=== PATIENT | male | born 1940 ===

== ENCOUNTER 2018-07-16 10:22 | Emergency (ER) | payer MEDICARE ==
[2018-07-16 10:22] VITALS: BMI 21.5
[2018-07-16 10:30] VITALS: PULSE 84; RESP 18; O2SAT 98
[2018-07-16] MEDS ORDERED: Albuterol 0.083% Inhal Sol (2.5 mg/3 mL) UD INH STA ×2 (11:15→12:14)
[2018-07-16] MEDS ORDERED: Albuterol 0.083% Inhal Sol (2.5 mg/3 mL) UD ONE ×2 (11:20→12:34)
[2018-07-16 11:32] LABS: BASO # 0.1 K/uL (0.0-0.2); BASO % 1.2 % (0.0-2.0); EOS # 0.2 K/uL (0.0-0.7); EOS % 2.6 % (0.0-4.0); HEMOGLOBIN 14.9 g/dL (12.0-18.0); LYMPH # 1.4 K/uL (1.0-4.3); LYMPH % 23.9 % (20.0-40.0); MEAN CELL VOLUME 99.2 fL (80.0-94.0); MEAN CORPUSCULAR HEMOGLOBIN 35.2 pg (27.0-31.0); MEAN CORPUSCULAR HGB CONC 35.4 g/dL (33.0-37.0); MEAN PLATELET VOLUME 8.5 fL (7.2-11.7); MONO # 0.5 K/uL (0.0-0.8); MONO % 8.5 % (0.0-10.0); NEUT # 3.8 K/uL (1.8-7.0); NEUT % 63.8 % (50.0-75.0); NRBC % 0.1 % (0.0-2.0); RBC 4.24 Mil/uL (4.40-5.90); RED CELL DISTRIBUTION WIDTH 12.3 % (11.5-14.5); WHITE BLOOD COUNT 5.9 K/uL (4.8-10.8)
[2018-07-16 11:43] LABS: ALB/GLOB RATIO 1.1 (1.0-2.1); ALBUMIN 4.1 g/dL (3.5-5.0); ALT/SGPT 43 U/L (21-72); AST/SGOT 32 U/L (17-59); BLOOD UREA NITROGEN 14 mg/dL (9-20); CALCIUM 8.1 mg/dl (8.6-10.4); GFR NON-AFRICAN AMERICAN > 60
[2018-07-16 11:55] LABS: B-TYPE NATRIURETIC PEPTIDE 337 pg/mL (0-900)
[2018-07-16 11:56] LABS: INR 1.7; PROTHROMBIN TIME 18.4 SECONDS (9.7-12.2)
--- NOTE | 2018-07-16 12:01 | RAD ---
Date of service: 07/16/2018 HISTORY: Shortness of breath COMPARISON: No prior. TECHNIQUE: Chest PA and lateral FINDINGS: LINES AND TUBES: None. LUNG AND PLEURA: The lungs are hyperinflated and there is peribronchial thickening with chronic changes in both lungs. No pleural effusion or pneumothorax. HEART AND MEDIASTINUM: There is mild cardiomegaly. There are aortic atherosclerotic calcifications present. The hilar and mediastinal contours are within normal limits. SKELETAL STRUCTURES: The bony structures are within normal limits for the patient's age. VISUALIZED UPPER ABDOMEN: Normal. OTHER FINDINGS: None. IMPRESSION: No active pulmonary disease. COPD.
--- NOTE | 2018-07-16 12:12 | C.PDOC ---
History Of Present Illness 78 year old male with a history of HTN (controlled by medications) presents to the emergency department with complaints of one week history of cough, nasal congestion, runny nose, and sore throat. Patient states that as of two nights ago he has been unable to sleep due to his cough. Patient denies nausea and vomiting. Time Seen by Provider: 07/16/18 10:57 Chief Complaint (Nursing): Cough, Cold, Congestion History Per: Patient History/Exam Limitations: no limitations Onset/Duration Of Symptoms: Other (one week) Current Symptoms Are (Timing): Still Present Location Of Pain: Throat Associated Symptoms: Sore Throat, Cough, Sinus Drainage, Nasal Congestion. denies: Nausea, Vomiting Past Medical History Reviewed: Historical Data, Nursing Documentation, Vital Signs Vital Signs: Last Vital Signs Temp 98 F 07/16/18 10:27 Pulse 84 07/16/18 10:27 Resp 18 07/16/18 10:27 BP 130/75 07/16/18 10:27 Pulse Ox 98 07/16/18 10:27 - Medical History PMH: Atrial Fibrillation, Benign Prostatic Hyperplasia, HTN Surgical History: Cholecystectomy - [facility] NEBULIZER THERAPY (01/28/15) Family History: States: No Known Family Hx - Social History Hx Alcohol Use: No Hx Substance Use: No Review Of Systems Except As Marked, All Systems Reviewed And Found Negative. ENT: Positive for: Nose Discharge, Nose Congestion, Throat Pain Respiratory: Positive for: Cough Physical Exam - Physical Exam Appears: Non-toxic, No Acute Distress Skin: Normal Color, Warm, Dry Head: Atraumatic, Normacephalic Eye(s): bilateral: Normal Inspection, PERRL, EOMI Ear(s): Bilateral: Normal Nose: Normal Oral Mucosa: Moist Throat: Normal, No Erythema Neck: Normal, Supple Chest: Symmetrical, No Tenderness Cardiovascular: Rhythm Regular, No Murmur Respiratory: Normal Breath Sounds, No Rales, No Rhonchi, No Wheezing Neurological/Psych: Oriented x3, Normal Speech, Normal Cognition ED Course And Treatment - Laboratory Results Result Diagrams: 07/16/18 11:29 07/16/18 11:29 Lab Results: PT 18.4 SECONDS (9.7-12.2) H 07/16/18 11:38 INR 1.7 07/16/18 11:38 APTT 42 SECONDS (21-34) H 07/16/18 11:38 Troponin I < 0.0120 ng/mL (0.00-0.120) 07/16/18 11:29 NT-Pro-B Natriuret Pep 337 pg/mL (0-900) 07/16/18 11:29 Total Bilirubin 0.9 mg/dL (0.2-1.3) 07/16/18 11:29 AST 32 U/L (17-59) 07/16/18 11:29 ALT 43 U/L (21-72) 07/16/18 11:29 Alkaline Phosphatase 81 U/L (38-126) 07/16/18 11:29 Total Protein 7.7 g/dL (6.3-8.3) 07/16/18 11:29 Albumin 4.1 g/dL (3.5-5.0) 07/16/18 11:29 Globulin 3.6 gm/dL (2.2-3.9) 07/16/18 11:29 Albumin/Globulin Ratio 1.1 (1.0-2.1) 07/16/18 11:29 Interpretation Of ECG: Rate-controlled atrial-fibrillation at 85bpm. Normal intervals, normal axis, occasional PVC, poor R-wave progression. O2 Sat by Pulse Oximetry: 98 (RA) Pulse Ox Interpretation: Normal Medical Decision Making Medical Decision Making: Plan: EKG Chemistry Bloodwork CXR Albuterol 2.5mg INH Nebulizer Treatment Disposition Counseled Patient/Family Regarding: Studies Performed, Diagnosis, Need For Followup, Rx Given - Disposition Referrals: [facility] [Outside] Disposition: HOME/ ROUTINE Disposition Time: 12:18 Condition: STABLE Additional Instructions: follow up with your doctor within 2 days call to make an appointment take medications as prescribed return to ER if symptoms worsens or progress Prescriptions: Albuterol HFA [Ventolin HFA 90 mcg/actuation (8 g)] 2 puff IH [id number] #1 puff Azithromycin [Zithromax] 250 mg PO DAILY #4 tab predniSONE [predniSONE Tab] 50 mg PO DAILY #4 tab Instructions: Acute Bronchitis Forms: [facility] (Yakut), General Discharge Instructions - Clinical Impression Clinical Impression: Bronchitis - Scribe Statement The provider has reviewed the documentation as recorded by the Scribe (Mikael Hou) Provider Attestation: All medical record entries made by the Scribe were at my direction and personally dictated by me. I have reviewed the chart and agree that the record accurately reflects my personal performance of the history, physical exam, medical decision making, and the department course for this patient. I have also personally directed, reviewed, and agree with the discharge instructions and disposition.
[2018-07-16 12:57] VITALS: BP 145/60; TEMP 98.6
--- NOTE | 2018-07-17 21:28 | CARD ---
APPROVED REPORT Date of service: 07/16/2018 EKG Measurement Heart [id number] <Conclusion> Atrial fibrillation with premature ventricular or aberrantly conducted complexes Anterior infarct, age undetermined Abnormal ECG
== END 2018-07-16 12:56 | disposition home or self-care (01) ==
LOC: C.ER 10:22
DX: J40 Bronchitis, not specified as acute or chronic (principal); I10 Essential (primary) hypertension; I48.91 Unspecified atrial fibrillation